=== PATIENT | male | born 1950 | race Caucasian/White ===

== ENCOUNTER 2016-12-11 13:52 | Emergency (ER) | payer MEDICARE, BC ==
--- NOTE | 2016-12-11 14:39 | RAD ---
EXAM DESCRIPTION: Lumbar Spine 3 Views CLINICAL HISTORY: low back pain, 3 days, with sciatica, no trauma COMPARISON: None Available. TECHNIQUE: AP/lateral/coned-down lateral FINDINGS: Mild convexity lumbar spine of the left is observed. The exam reveals loss of disc height at the L5-S1 level. Mild anterior osteophyte formation is observed. Calcific atherosclerotic changes observed in the abdominal aorta without evidence of aneurysmal dilatation. IMPRESSION: Mild degenerative changes are observed most pronounced at the L5-S1 level. Electronically signed by: Neo Oliva MD 12/11/2016 2:39 PM CDT
[2016-12-11] MEDS ORDERED: KETOROLAC TROMETHAMINE INJ 30 MG/ML VIAL IM ONE (15:12)
--- NOTE | 2016-12-11 15:13 | ED.PDOC ---
History of Present Illness - General Chief Complaint: Back Pain or Injury Stated Complaint: back pain Time Seen by Provider: 12/11/16 13:56 Source: patient Exam Limitations: no limitations - History of Present Illness Initial Comments: the patient is a 66-year-old male presenting to the emergency room secondary to about a week worth of symptoms of low back discomfort at the level of L4-S1 bilaterally. He has also had some symptoms radiating down the left leg consistent with sciatica. No sensory loss. No loss of bladder or bowel control. No muscle weakness. No injuries but he does have a long-term job requires sitting for extended periods of times and driving a bumpy roads. He is a electric truck driver. No fevers. No lacerations. He does have some overuse of the left side secondary to a previous stroke limiting his right lower extremity dysfunction. Timing/Duration: 1 week Quality/Severity: moderate, radiation Back Pain Location: lumbar spine Improving Factors: nothing Worsening Factors: other - standing and sitting Associated Symptoms: muscle spasms Allergies/Adverse Reactions: Allergies NO KNOWN ALLERGY Allergy (Verified 12/11/16 14:10) Home Medications: Ambulatory Orders Unk 03/18/16 Glohngwqsekae-Qkat-Vbrqrdfksd [Fioricet] 1 ea PO Q8H PRN #21 tab 12/11/16 Cyclobenzaprine HCl [Flexeril] 5 mg PO TID PRN #30 tab 12/11/16 predniSONE [Prednisone] 20 mg PO DAILY #3 tab 12/11/16 Review of Systems - Review of Systems Constitutional: States: no symptoms reported EENTM: States: no symptoms reported Respiratory: States: no symptoms reported Cardiology: States: no symptoms reported Gastrointestinal/Abdominal: States: no symptoms reported Genitourinary: States: no symptoms reported Musculoskeletal: States: see HPI Skin: States: no symptoms reported Neurological: States: see HPI Endocrine: States: no symptoms reported All other Systems: No Change from Baseline Past Medical History (General) - Patient Medical History Hx Stroke: Yes Hx Hypertension: Yes Hx Diabetes: Yes Hx Gastroesophageal Reflux: Yes Hx MRSA: - unsure - Vaccination History Hx Tetanus, Diphtheria Vaccination: No Hx Influenza Vaccination: Yes Hx Pneumococcal Vaccination: No Family Medical History - Family History Father Family History: Unknown Physical Exam - Physical Exam General Appearance: Alert, Comfortable, No apparent distress Eyes, Ears, Nose, Throat Exam: PERRL/EOMI Neck Exam: non-tender, full range of motion, normal alignment, normal inspection Cardiovascular/Respiratory: regular rate, rhythm, normal peripheral pulses, normal breath sounds, no respiratory distress Peripheral Pulses: radial,right: 2+, radial,left: 2+, dorsalis pedis,right: 2+, dorsalis pedis,left: 2+ Gastrointestinal/Abdominal: other - Obese Back Exam: no vertebral tenderness, other - the patient does have discomfort palpation bilaterally adjacent to the lumbar spine in the L4-S1 level no obvious deformity. No bruising. No evidence of acute trauma. 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 X-ray shows degenerative changes of the lumbar spine. No evidence of compression fracture. No significant subluxation. The patient will be given a shot of Toradol. He will be placed on prednisone 20 mg daily for the next 3 days. He will also be written for Flexeril as a muscle relaxer and Fioricet for pain control. He can additionally use ibuprofen 2-3 times daily for the next week only to help reduce inflammation. He can use topical heat in the form of a heat pad or icy hot or Biofreeze. He needs to do stretching exercises for his low back. He can see a chiropractor to see if they can get him some relief as well. He needs to follow up with his primary care doctor early next week. ER warnings were given. Departure - Departure Clinical Impression: Low back pain of multiple sites of spine with sciatica Disposition: Discharge to Home or Self Care Condition: Fair Departure Forms: ED Discharge - Pt. Copy, Patient Portal Self Enrollment Instructions: DI for Back Pain With Sciatica Diet: diabetic diet Activity: increase activity as tolerated Referrals: Mike Rodriguez MD [Primary Care Provider] - 1-2 Weeks Prescriptions: Qhjsfartfegsw-Aloy-Qalctwedex [Fioricet] 1 ea PO Q8H PRN #21 tab PRN Reason: Pain Cyclobenzaprine HCl [Flexeril] 5 mg PO TID PRN #30 tab PRN Reason: Muscle Spasms predniSONE [Prednisone] 20 mg PO DAILY #3 tab Home Medications: Ambulatory Orders Unk 03/18/16 Xvmmcdmwuhacj-Sybw-Arjibmqwtv [Fioricet] 1 ea PO Q8H PRN #21 tab 12/11/16 Cyclobenzaprine HCl [Flexeril] 5 mg PO TID PRN #30 tab 12/11/16 predniSONE [Prednisone] 20 mg PO DAILY #3 tab 12/11/16 Additional Instructions: the patient is a 66-year-old male presenting to emergency room secondary to acute on chronic low back pain with some sciatica down the left lower extremity. X-ray shows degenerative changes of the lumbar spine. No evidence of compression fracture. No significant subluxation. The patient will be given a shot of Toradol. He will be placed on prednisone 20 mg daily for the next 3 days. He will also be written for Flexeril as a muscle relaxer and Fioricet for pain control. He can additionally use ibuprofen 2-3 times daily for the next week only to help reduce inflammation. He can use topical heat in the form of a heat pad or icy hot or Biofreeze. He needs to do stretching exercises for his low back. He can see a chiropractor to see if they can get him some relief as well. He needs to follow up with his primary care doctor early next week. ER warnings were given.
[2016-12-11 20:03] VITALS: TEMP 98.2
[2016-12-11 20:07] VITALS: BP 138/78; O2SAT 95
== END 2016-12-11 15:40 | disposition home or self-care (01) ==
LOC: ER 13:52
DX: M54.42 Lumbago with sciatica, left side (principal); I69.951 Hemiplegia and hemiparesis following unspecified cerebrovascular disease affecting right dominant side; I10 Essential (primary) hypertension; E11.9 Type 2 diabetes mellitus without complications; K21.9 Gastro-esophageal reflux disease without esophagitis; Z79.899 Other long term (current) drug therapy
CPT/HCPCS: 72100; J1885

== ENCOUNTER → 2017-01-07 | Outpatient (CLI) | payer MEDICARE, BC | END | disposition home or self-care (01) | LOC: GMAH 11:02 | PROVIDERS: ATTEND Family Medicine | DX: Z12.5 Encounter for screening for malignant neoplasm of prostate (principal) ==

== ENCOUNTER 2017-04-17 17:49 | Emergency (ER) | payer MEDICARE, BC ==
[2017-04-17 18:11] VITALS: TEMP 99
--- NOTE | 2017-04-17 18:20 | ED.PDOC ---
History of Present Illness - General Chief Complaint: Trauma Stated Complaint: hip pain Time Seen by Provider: 04/17/17 17:58 Source: patient, RN notes reviewed, Vital Signs reviewed Exam Limitations: no limitations - History of Present Illness Initial Comments: Patient presents to ER with c/o right posterior hip pain after a fall this morning @ 05:45. He was getting up off the couch, lost his balance and fell into the treadmill. Timing/Duration: constant - since this morning Severity: moderate - 5/10 Improving Factors: nothing - Tried ice, heat and OTC medications Worsening Factors: movement Associated Symptoms: denies symptoms Allergies/Adverse Reactions: Allergies NO KNOWN ALLERGY Allergy (Verified 04/17/17 18:11) Home Medications: Ambulatory Orders Unk 03/18/16 Lweujtpwkwtat-Yafo-Rfjwawbwxm [Fioricet] 1 ea PO Q8H PRN #21 tab 12/11/16 Cyclobenzaprine HCl [Flexeril] 5 mg PO TID PRN #30 tab 12/11/16 predniSONE [Prednisone] 20 mg PO DAILY #3 tab 12/11/16 Review of Systems - Review of Systems Constitutional: States: no symptoms reported Respiratory: States: no symptoms reported Cardiology: States: no symptoms reported Gastrointestinal/Abdominal: States: no symptoms reported Musculoskeletal: States: back pain - R low back/upper pelvis Skin: States: no symptoms reported Neurological: States: pre-existing deficit - R side deficit due to prior stroke Past Medical History (General) - Patient Medical History Hx Stroke: Yes Hx Congestive Heart Failure: No Hx Hypertension: Yes Hx Thyroid Disease: Yes Hx Diabetes: Yes Hx Gastroesophageal Reflux: Yes Hx MRSA: - unsure Surgical History: no surgical history - Vaccination History Hx Tetanus, Diphtheria Vaccination: No Hx Influenza Vaccination: No Hx Pneumococcal Vaccination: No - Social History Hx Tobacco Use: No Hx Alcohol Use: Yes - occasional - Activities of Daily Living Hospice Agency (if applicable):: None Family Medical History - Family History Father Family History: Unknown Physical Exam - Physical Exam General Appearance: Alert, No apparent distress, Well Developed, Well Groomed, Well Hydrated, Well Nourished Respiratory: lungs clear, normal breath sounds, no respiratory distress, no accessory muscle use Cardiovascular/Chest: normal peripheral pulses, regular rate, rhythm, no edema, no gallop, no murmur Peripheral Pulses: posterior tibialis,right: 1+, posterior tibialis,left: 1+ Gastrointestinal/Abdominal: soft, tenderness - mild RLQ Back Exam: no CVA tenderness, no vertebral tenderness, other - Tender R lateral back just superior to pelvis Extremity: normal range of motion - without pain of R hip Neurologic: alert, normal mood/affect, oriented x 3 Skin Exam: normal color, warm/dry Comments: Vital Signs 04/17/17 04/17/17 18:00 18:13 Temperature 99.0 F Pulse Rate [ 66 pulse ox] Respiratory 20 20 Rate Blood Pressure 121/74 [Left Arm] O2 Sat by Pulse 92 L Oximetry Progress - Progress Progress: 04/17/17 19:26 Patient is ready to go. Advised of X-ray and lab results 04/17/17 19:28 Patient wants to use OTC pain medications. He does have some Tramadol @ home - Results/Orders Results/Orders: Laboratory Tests 04/17/17 19:00 Urine Color Yellow Urine Appearance Clear Urine pH 5.5 Ur Specific [place] >= 1.030 Urine Protein 30 Urine Glucose (UA) Negative Urine Ketones Trace Urine Blood Negative Urine Nitrite Negative Urine Bilirubin Small H Urine Urobilinogen 1.0 Ur Leukocyte Esterase Negative Urine RBC 0-1 Urine WBC 1-3 Ur Epithelial Cells 1-3 Calcium Oxalate Crystal 1+ Amorphous Sediment Trace Urine Bacteria Rare Hyaline Casts 0-1 Urine Mucus Trace Urine Sperm 1-3 - EKG/XRAY/CT XRAY: pelvis - No acute abnormality per Radiologist Departure - Departure Clinical Impression: Contusion of lower back and pelvis, initial encounter Time of Disposition: 19:27 Disposition: Discharge to Home or Self Care Condition: Good Departure Forms: ED Discharge - Pt. Copy, Patient Portal Self Enrollment Instructions: DI for Contusion Diet: resume usual diet Activity: increase activity as tolerated Referrals: Mike Rodriguez MD [Primary Care Provider] - 1-2 Weeks Home Medications: Ambulatory Orders Unk 03/18/16 Jaugdwpahunlp-Lmqc-Btmsqzxnyg [Fioricet] 1 ea PO Q8H PRN #21 tab 12/11/16 Cyclobenzaprine HCl [Flexeril] 5 mg PO TID PRN #30 tab 12/11/16 predniSONE [Prednisone] 20 mg PO DAILY #3 tab 12/11/16
--- NOTE | 2017-04-17 19:10 | RAD ---
EXAM DESCRIPTION: Pelvis,2 or More Views CLINICAL HISTORY: R post, upper pelvic pain s/p fall COMPARISON: None FINDINGS: Two views of the pelvis were submitted. There is no discrete acute fracture. Bone mineralization is within normal limits. There is atherosclerosis. IMPRESSION: No acute abnormalities Electronically signed by: Kameron Morales MD 04/17/2017 7:09 PM CDT
[2017-04-17 19:38] VITALS: BP 114/70; O2SAT 96
== END 2017-04-17 19:37 | disposition home or self-care (01) ==
LOC: ER 17:49
DX: S30.0XXA Contusion of lower back and pelvis, initial encounter (principal); I10 Essential (primary) hypertension; E07.9 Disorder of thyroid, unspecified; E11.9 Type 2 diabetes mellitus without complications; K21.9 Gastro-esophageal reflux disease without esophagitis; Z86.73 Personal history of transient ischemic attack (TIA), and cerebral infarction without residual deficits; W01.198A Fall on same level from slipping, tripping and stumbling with subsequent striking against other object, initial encounter; Y92.9 Unspecified place or not applicable

== ENCOUNTER 2018-07-04 05:40 | Day surgery (SDC) | payer MEDICARE, BC ==
[2018-07-04] MEDS ORDERED: TROP 1%/CYCLOPEN 1%/PHENYL 2% DROPS OPHTH ONE (05:41)
[2018-07-04] MEDS ORDERED: MIDAZOLAM INJ 2 MG/2 ML VIAL ONE (06:46)
[2018-07-04] MEDS ORDERED: PROPARACAINE 0.5% OPHTH SOL 15 ML BTTL LEFT_EYE ONE (11:06)
[2018-07-04] MEDS ORDERED: LIDOCAINE 1% MPF 5 ML VIAL INJ ONE (11:14)
[2018-07-04] MEDS ORDERED: TOBRAMYCIN SULF 0.3 % OPHT SOL 1 DROP LEFT_EYE ONE ×2 (11:18→11:27)
[2018-07-04] MEDS ORDERED: DEXAMETHASONE 0.1% OPHTH SOL 1 DROP LEFT_EYE ONE ×2 (11:18→11:27)
[2018-07-04] MEDS ORDERED: BRIMONIDINE 0.2% OPHTH DROPS LEFT_EYE ONE ×2 (11:18→11:27)
== END 2018-07-04 12:10 | disposition home or self-care (01) ==
LOC: AMB 05:40
PROVIDERS: ATTEND Ophthalmology
DX: H25.9 Unspecified age-related cataract (principal); E11.36 Type 2 diabetes mellitus with diabetic cataract; I10 Essential (primary) hypertension
CPT/HCPCS: 00142; 36416; 66984; 82948; J2250

== ENCOUNTER 2018-07-18 05:40 | Day surgery (SDC) | payer MEDICARE, BC ==
[2018-07-18] MEDS ORDERED: PROPARACAINE 0.5% OPHTH SOL 15 ML BTTL ONE (05:58)
[2018-07-18] MEDS ORDERED: TROP 1%/CYCLOPEN 1%/PHENYL 2% DROPS ONE (05:58)
[2018-07-18] MEDS ORDERED: MIDAZOLAM INJ 2 MG/2 ML VIAL ONE (06:43)
[2018-07-18] MEDS ORDERED: PROPARACAINE 0.5% OPHTH SOL 15 ML BTTL RIGHT_EYE ONE (07:45)
[2018-07-18] MEDS ORDERED: DEXAMETHASONE 0.1% OPHTH SOL 1 DROP RIGHT_EYE ONE ×2 (07:51→08:09)
[2018-07-18] MEDS ORDERED: TOBRAMYCIN-DEXAMETH OPHTH SOL 1 DROP RIGHT_EYE ONE ×2 (07:51→08:09)
[2018-07-18] MEDS ORDERED: LIDOCAINE 1% 2 ML VIAL INJ ONE ×2 (07:51→07:55)
[2018-07-18] MEDS ORDERED: BRIMONIDINE 0.2% OPHTH DROPS RIGHT_EYE ONE ×2 (07:52→08:09)
[2018-07-18] MEDS ORDERED: TOBRAMYCIN SULF 0.3 % OPHT SOL 1 DROP OPHTH ONE (08:09)
== END 2018-07-18 08:45 | disposition home or self-care (01) ==
LOC: AMB 05:40
PROVIDERS: ATTEND Ophthalmology
DX: H26.9 Unspecified cataract (principal); E11.36 Type 2 diabetes mellitus with diabetic cataract; I10 Essential (primary) hypertension; E66.9 Obesity, unspecified; Z79.84 Long term (current) use of oral hypoglycemic drugs; Z79.899 Other long term (current) drug therapy
CPT/HCPCS: 00142; 36416; 66984; 82948; J2250

== ENCOUNTER 2019-08-07 15:46 | Emergency (ER) | payer MEDICARE ==
[2019-08-07 16:04] VITALS: TEMP 96.9
--- NOTE | 2019-08-07 16:43 | RAD ---
EXAM DESCRIPTION: Chest,2 Views CLINICAL HISTORY: 69 years Male, soares, shoulder pain, achey COMPARISON: None Available TECHNIQUE: PA/lateral FINDINGS: The lungs are clear. The heart is at the upper limits of normal in size. No pleural fluid is seen. Mild degenerative changes are seen in the thoracic spine. IMPRESSION: The heart is at the upper limits of normal in size. The chest is otherwise unremarkable. Electronically signed by: Neo Oliva MD 08/07/2019 4:41 PM [facility]
--- NOTE | 2019-08-07 17:25 | ED.PDOC ---
History of Present Illness - General Chief Complaint: General Stated Complaint: NAUSEA, DIZZINESS, NECK PAIN Time Seen by Provider: 08/07/19 15:53 Source: patient Exam Limitations: no limitations - History of Present Illness Initial Comments: the patient is 69-year-old male presented to the emergency room secondary to 2-3 hours of several symptoms including very mild dizziness, some mild tightness between his shoulder blades, mild runny nose, mild cough, mild headache, mild fatigue. He has been around several sick people. No chest pain. No real shortness of breath. No syncope or near syncope. No rash. The patient does have known chronic anemia but has not been taking his iron. Timing/Duration: unsure Severity: moderate Improving Factors: nothing, immobilization Worsening Factors: nothing Associated Symptoms: headaches, malaise Allergies/Adverse Reactions: Allergies NO KNOWN ALLERGY Allergy (Verified 04/17/17 18:11) Home Medications: Ambulatory Orders Albuterol Sulfate [Proair Hfa] 1 puff INH Q4H PRN 08/07/19 Allopurinol 300 mg PO DAILY 08/07/19 Amlodipine Besylate [Norvasc] 1 tablet PO DAILY 08/07/19 Aspirin [Aspirin EC] 1 tablet PO DAILY 08/07/19 Atorvastatin Calcium 40 mg PO DAILY 08/07/19 Esomeprazole Magnesium [Nexium] 20 mg PO DAILY 08/07/19 Magnesium Oxide (mg Supplement [Magnesium Oxide] 400 mg PO BID #30 tab 08/07/19 Metformin HCl [Metformin Hydrochloride E] 1 tablet PO DAILY 08/07/19 Metoprolol Tartrate 25 mg PO BID 08/07/19 Nitroglycerin [Nitro-Dur] 0.4 mg TD PRN PRN 08/07/19 Paroxetine 1 tablet PO DAILY 08/07/19 Plavix 1 tablet PO DAILY 08/07/19 Tamsulosin [Flomax] 0.4 mg PO QD 08/07/19 Valsartan 160 mg PO DAILY 08/07/19 Review of Systems - Review of Systems Constitutional: States: malaise, weakness - generalized EENTM: States: nose congestion Respiratory: States: cough Cardiology: States: no symptoms reported Gastrointestinal/Abdominal: States: no symptoms reported Genitourinary: States: no symptoms reported Musculoskeletal: States: no symptoms reported Skin: States: no symptoms reported Neurological: States: no symptoms reported - chronic changes from previous stroke, headache Endocrine: States: no symptoms reported All other Systems: No Change from Baseline Past Medical History (General) - Patient Medical History Hx Stroke: Yes Hx Asthma: Yes Hx Congestive Heart Failure: No Hx Hypertension: Yes Hx Thyroid Disease: Yes Hx Diabetes: Yes Hx Gastroesophageal Reflux: Yes Hx MRSA: No - Vaccination History Hx Tetanus, Diphtheria Vaccination: No Hx Influenza Vaccination: No Hx Pneumococcal Vaccination: No - Social History Hx Tobacco Use: No Hx Chewing Tobacco Use: No Hx Alcohol Use: Yes Hx Substance Use: No Hx Substance Use Treatment: No Hx Depression: No - Activities of Daily Living Hospice Agency (if applicable):: None - Female History Patient : No - Triage Comment ED Triage Comment: pt wheeled into er via wheelchair voicing complaints of dizziness/ nausea with neck pain of aching quality. Family Medical History - Family History Father Family History: Unknown Living Status: Age at (years of age): 42 Cause of : Heart Attack Hx Family;Other: brother-brain aneurysm Physical Exam - Physical Exam General Appearance: Alert, No apparent distress Eye Exam: bilateral normal Ears, Nose, Throat: hearing grossly normal, normal pharynx, nasal congestion Neck: full range of motion, supple Respiratory: lungs clear, normal breath sounds, no respiratory distress, no accessory muscle use Cardiovascular/Chest: normal peripheral pulses, no edema, other - regular rate Peripheral Pulses: radial,right: 2+, radial,left: 2+ Gastrointestinal/Abdominal: non tender, soft Rectal Exam: deferred Extremity: normal range of motion, no pedal edema, no calf tenderness, normal capillary refill 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 It is entirely possible that the patient may be on the front end of a viral syndrome. He has tested negative for flu here today. Laboratory work and EKG are otherwise fairly reassuring with the exception that he does have some mild dehydration. He needs to increase his fluid intake. This may help some with mild dizziness. Additionally he does have some mild hypomagnesemia. He will be written for some magnesium oxide to take over the next few weeks. This needs to be rechecked with his primary care doctor in a few weeks. Additionally he does have some moderate anemia. This is apparently a long-standing issue and he has not been taking his iron supplement. He needs to resume his iron supplement and take it with orange juice or grapefruit juice. He does need to have this rechecked in a couple of weeks as well. No evidence of any overt bleeding. Vital signs have remained stable. ER warnings were given for any acute worsening. miranda gaviria [id number] - Results/Orders Results/Orders: Laboratory Tests 08/07/19 08/07/19 16:27 16:27 WBC 8.9 RBC 3.64 L Hgb 8.2 L Hct 26.7 L MCV 73.5 L MCH 22.6 L MCHC 30.7 L RDW 18.0 H Plt Count 417 H MPV 7.9 Absolute Neuts (auto) 7.30 H Absolute Lymphs (auto) 0.70 L Absolute Monos (auto) 0.50 Absolute Eos (auto) 0.40 Absolute Basos (auto) 0.10 Neutrophils % 82.3 H Lymphocytes % 7.5 L Monocytes % 5.4 Eosinophils % 4.1 Basophils % 0.7 Normal RBC Morphology Stain quality accept Sodium 136 Potassium 3.7 Chloride 101 Carbon Dioxide 25 Anion Gap 13.7 BUN 22 H Creatinine 1.47 H BUN/Creatinine Ratio 15.0 Random Glucose 127 H Serum Osmolality 276.9 Calcium 9.6 Magnesium 1.6 L Total Bilirubin 0.5 AST 17 ALT 10 Alkaline Phosphatase 64 Creatine Kinase 60 CK-MB (CK-2) 1.4 CK-MB (CK-2) % Not Reportable Troponin I 0.05 B-Natriuretic Peptide 168.0 H Serum Total Protein 8.0 Albumin 3.9 Globulin 4.1 H Albumin/Globulin Ratio 1.0 L EKG showed normal sinus rhythm at 65 bpm. Normal axis. T-wave in lead 3. Poorly progression in anterior leads. Normal QT interval. Departure - Departure Clinical Impression: Dehydration, mild, Hypomagnesemia Iron deficiency anemia Qualifiers: Iron deficiency anemia type: unspecified iron deficiency Qualified Code(s): D50.9 - Iron deficiency anemia, unspecified Disposition: Discharge to Home or Self Care Condition: Good Departure Forms: ED Discharge - Pt. Copy, Patient Portal Self Enrollment Diet: regular diet Activity: increase activity as tolerated Prescriptions: Magnesium Oxide (mg Supplement [Magnesium Oxide] 400 mg PO BID #30 tab Home Medications: Ambulatory Orders Albuterol Sulfate [Proair Hfa] 1 puff INH Q4H PRN 08/07/19 Allopurinol 300 mg PO DAILY 08/07/19 Amlodipine Besylate [Norvasc] 1 tablet PO DAILY 08/07/19 Aspirin [Aspirin EC] 1 tablet PO DAILY 08/07/19 Atorvastatin Calcium 40 mg PO DAILY 08/07/19 Esomeprazole Magnesium [Nexium] 20 mg PO DAILY 08/07/19 Magnesium Oxide (mg Supplement [Magnesium Oxide] 400 mg PO BID #30 tab 08/07/19 Metformin HCl [Metformin Hydrochloride E] 1 tablet PO DAILY 08/07/19 Metoprolol Tartrate 25 mg PO BID 08/07/19 Nitroglycerin [Nitro-Dur] 0.4 mg TD PRN PRN 08/07/19 Paroxetine 1 tablet PO DAILY 08/07/19 Plavix 1 tablet PO DAILY 08/07/19 Tamsulosin [Flomax] 0.4 mg PO QD 08/07/19 Valsartan 160 mg PO DAILY 08/07/19 Additional Instructions: the patient is a 69-year-old male presenting to the emergency room secondary to lvague symptoms that started over the last 3 hours. It is entirely possible that the patient may be on the front end of a viral syndrome. He has tested negative for flu here today. Laboratory work and EKG are otherwise fairly reassuring with the exception that he does have some mild dehydration. He needs to increase his fluid intake. This may help some with mild dizziness. Additionally he does have some mild hypomagnesemia. He will be written for some magnesium oxide to take over the next few weeks. This needs to be rechecked with his primary care doctor in a few weeks. Additionally he does have some moderate anemia. This is apparently a long-standing issue and he has not been taking his iron supplement. He needs to resume his iron supplement and take it with orange juice or grapefruit juice. He does need to have this rechecked in a couple of weeks as well. No evidence of any overt bleeding. Vital signs have remained stable. ER warnings were given for any acute worsening.
[2019-08-07] MEDS ORDERED: MAGNESIUM OXIDE 400 MG TAB ONE (17:49)
[2019-08-07 18:02] VITALS: BP 128/67; O2SAT 97
[2019-08-08] MEDS ORDERED: MAGNESIUM OXIDE 400 MG TAB PO ONE (17:22)
== END 2019-08-07 18:00 | disposition home or self-care (01) ==
LOC: ER 15:46
DX: D50.9 Iron deficiency anemia, unspecified (principal); E86.0 Dehydration; E83.42 Hypomagnesemia; R05 Cough; J45.909 Unspecified asthma, uncomplicated; I10 Essential (primary) hypertension; E07.9 Disorder of thyroid, unspecified; E11.9 Type 2 diabetes mellitus without complications; K21.9 Gastro-esophageal reflux disease without esophagitis; Z86.73 Personal history of transient ischemic attack (TIA), and cerebral infarction without residual deficits; Z79.899 Other long term (current) drug therapy; Z79.02 Long term (current) use of antithrombotics/antiplatelets; Z79.84 Long term (current) use of oral hypoglycemic drugs; Z79.82 Long term (current) use of aspirin; Z91.14 Patient's other noncompliance with medication regimen

== ENCOUNTER → 2019-12-19 | Outpatient (CLI) | payer MEDICARE | LOC: GMA MATASK 12:00 | PROVIDERS: ATTEND Family Medicine | DX: I10 Essential (primary) hypertension (principal); Z12.5 Encounter for screening for malignant neoplasm of prostate; E11.9 Type 2 diabetes mellitus without complications | CPT/HCPCS: 84443; 84550; G0103 ==

== ENCOUNTER → 2020-10-10 | Outpatient (CLI) | payer MEDICARE | LOC: GMA MATASK 13:05 | PROVIDERS: ATTEND Family Medicine | DX: Z12.5 Encounter for screening for malignant neoplasm of prostate (principal); E11.9 Type 2 diabetes mellitus without complications; I10 Essential (primary) hypertension | CPT/HCPCS: 84550; G0103 ==